=== PATIENT | female | born 1985 | race Caucasian/White ===

== ENCOUNTER → 2019-11-22 08:16 | Outpatient (BNVA) | payer MEDICAID, SELFPAY | PROVIDERS: Family Provider Nurse Practitioner; PCP Nurse Practitioner; Visit Provider Nurse Practitioner Family | DX: Z11.59 Encounter for screening for other viral diseases (principal) | CPT/HCPCS: 87635 ==

== ENCOUNTER → 2020-03-20 12:25 | Outpatient (BNVA) | payer BC, MEDICAID, SELFPAY | PROVIDERS: Family Provider Nurse Practitioner; PCP Nurse Practitioner; Visit Provider Nurse Practitioner | DX: S69.91XA Unspecified injury of right wrist, hand and finger(s), initial encounter (principal); X58.XXXA Exposure to other specified factors, initial encounter; M79.641 Pain in right hand | CPT/HCPCS: 73130 ==

== ENCOUNTER 2021-04-26 13:22 | Emergency (ER) | payer BC, MEDICAID, SELFPAY ==
[2021-04-26 13:48] VITALS: BP 135/81; PULSE 87; RESP 16; TEMP 36.4; O2SAT 98; BMI 42.3
--- NOTE | 2021-04-26 14:39 | ED_ITS ---
Documented by User: AMADOR Cool 04/26/21 16:10 HPI - Abdominal Pain General: Chief Complaint: Abdominal Pain Stated Complaint: Severe ABD Pain Time Seen by Provider: 04/26/21 14:39 Source: patient Mode of arrival: ambulatory Limitations: no limitations History of Present Illness: Patient is a 36-year-old female who presents to ED today with a complaint of abdominal pain. Patient tells me she began having pain in the right side of her back approximately 2 to 3 days ago. She states she chronically suffers from back pain so was not sure if her discomfort was secondary to that. She states she also has a family history of kidney stones and thought maybe it could be secondary to nephrolithiasis. Patient states that she never had any urinary symptoms but did start taking Azo thinking it could be either the kidney stone or a possible kidney infection. Patient states now her pain is diffuse into her abdomen. She states her abdomen feels bloated. She is not having any changes to bowel movements. She reports nausea without episodes of emesis. She has not had any fevers. MD elicited complaint: abdominal pain Pertinent past history: none Onset (ago): day(s) Pain Consistency: constant Location: Diffuse Quality: other (bloating) Radiation: none Migration to: no migration Exacerbating factors: nothing Relieving factors: nothing Associated Symptoms: Reports nausea; Denies change in bowel habits, change in stool character, chills, dysuria, fever(s), hematochezia, hematemesis, melena and vomiting Related Data: Date of Last Menstrual Period: 03/11/19 Review of Systems Const: Denies: fever(s), chills, body aches, fatigue or malaise Card: Denies: chest pain Resp: Denies: dyspnea GI: Reports: abdominal pain and nausea; Denies: vomiting, hematemesis, change in bowel habits, pain on defecation, change in stool character, hematochezia or melena : Denies: difficulty voiding, dysuria, urinary frequency, urinary urgency, vaginal odor, vaginal bleeding, vaginal discharge or pelvic pain Musc: Reports: back pain; Denies: neck pain, extremity pain or joint pain Skin/Breast: Denies: rash Neuro: Denies: headache(s), numbness in extremities, weakness in extremities, sensory changes or dizziness [facility] ED PFSH: Medical History (Updated 04/26/21 @ 20:35 by AMADOR Muller) Anxiety, generalized Depression Surgical History History of section Family History Family/Other Cancer Breast aunts Depression Grandmother Diabetes Hypertension Grandfather Diabetes Hypertension Stroke Social History Smoking and tobacco status: current some day smoker Second hand smoke exposure: No Smoking risk assessment/counseling performed?: No Alcohol intake: never Desire information about alcohol rehabilitation?: No Counseling given: No Desire information about substance/drug rehabilitation?: No Counseling given: No Adopted: No Caregiver/support person: No Lives independently: Yes Housing: House Marital status: Single Number of children: 2 service: No Current occupational status: employed Current occupation: [employer] History of recent travel: No Current gender identity: Female Female Reproductive History: Date of last menstrual period: 03/11/19 Physical Exam Const: COMMON NORMALS: no acute distress, patient oriented x3, no limitations and alert GENERAL APPEARANCE: cooperative NUTRITIONAL APPEARANCE: obese ORIENTATION/CONSCIOUSNESS: Yes awake, Yes oriented to person, Yes oriented to place and Yes oriented to time HENMT: COMMON NORMALS: normocephalic and atraumatic HEAD & SCALP: normocephalic and atraumatic Resp: COMMON NORMALS: normal respiratory effort and clear to auscultation bilaterally AUSCULTATION: clear to auscultation bilaterally Cardio: COMMON NORMALS: regular rate and regular rhythm RATE: regular rate RHYTHM: regular rhythm GI: COMMON NORMALS: Normal to inspection, nondistended, normoactive bowel sounds present, Soft to palpation, non-tender and no masses INSPECTION: Yes normal to inspection AUSCULTATION: Yes normoactive bowel sounds PALPATION: Yes Soft to palpation OTHER: diffuse tenderness-no obvious guarding or rigidity; exam limited secondary to body habitus : COMMON NORMALS: Yes no CVA tenderness BLADDER/KIDNEY EXAM: Yes no CVA tenderness Back/Pelvis: COMMON NORMALS: no CVA tenderness, thoracic and lumbar spine normal to inspection, no thoracic nor lumbar tenderness and thoraco-lumbar ROM normal Extremity: COMMON NORMALS: normal to inspection GENERAL: Yes normal exam except as noted Neuro: COMMON NORMALS: patient oriented x3, moves all extremities, no focal motor deficits and no sensory deficits noted SENSORIUM/ORIENTATION: Yes alert, Yes oriented to person, Yes oriented to place and Yes oriented to time Skin: COMMON NORMALS: no rashes or lesions noted GENERAL SKIN EXAM: no rashes or lesions noted Course Vital Signs: Vital signs: Vital Signs Temperature 97.6 F 04/26/21 13:48 Pulse Rate 87 04/26/21 13:48 Respiratory Rate 18 04/26/21 20:39 Blood Pressure 135/81 04/26/21 13:48 Pulse Oximetry 98 04/26/21 13:48 MDM - Abdominal Pain Lab Data : 04/26/21 15:30 04/26/21 15:30 Labs/Radiology: Radiology Impressions Abdomen/Pelvis CT 04/26/21 14:39 IMPRESSION: 1. 2.8 cm probable hemorrhagic cyst in the left ovary. For an asymptomatic patient, no further imaging is recommended. (Reference: Bob). If this could relate to the patient's symptoms, this can be further evaluated with pelvic ultrasound. 2. Otherwise no acute abnormality identified. 3. Cholelithiasis. References: Bob et al. Management of Incidental Adnexal Findings on CT and MRI: A White Paper of the ACR Incidental Findings Committee, J Am Terrance Radiol. 2020 Mar;17(2):248-254. COMMENTS: Consistent with the [place] [employer]'s Incidental Findings Committee white paper (J Am Terrance Radiol 2018): Any incidental renal lesion less than 1 cm or classified as too small to characterize, or any incidental cystic renal lesion characterized as simple-appearing, is likely benign. No follow-up imaging is recommended for these lesions per consensus recommendations based on imaging criteria. Pelvic/Transvag US 04/26/21 17:58 IMPRESSION: 1. 2.6 cm inhomogenous hyperechoic lesion in the left ovary appears avascular and is most likely a hemorrhagic cyst. Recommend 6-12 week follow-up to ensure resolution. If the cyst is unchanged, then hemorrhagic cyst is unlikely, and continued follow-up with either US or MR should then be considered. If these studies do not confirm an endometrioma or dermoid, then surgical evaluation should be considered. Laboratory Results WBC 7.9 10^3/uL (4.0-10.0) 04/26/21 15:30 RBC 5.30 10^6/uL (4.1-5.3) 04/26/21 15:30 Hgb 14.5 g/dL (11.5-15.3) 04/26/21 15: Hct 45.1 % (37.0-47.0) 04/26/21 15: MCV 85.1 fl (81-99) 04/26/21 15: MCH 27.4 pg (28.0-34.0) L 04/26/21 15: MCHC 32.2 g/dL (30.0-36.0) 04/26/21 15: RDW 13.6 % (12.1-15.1) 04/26/21: Plt Count 203 10^3/cmm (130-400) 04/26/21 15: MPV 11.7 fL (7.4-10.4) H 04/26/21 15: Neut % (Auto) 66.7 % 04/26/21: Lymph % (Auto) 21.5 % 04/26/21 15: [facility] % (Auto) 10.0 % 04/26/21 15: Eos % (Auto) 1.0 % 04/26/21 15: Baso % (Auto) 0.5 % 04/26/21: Neut # (Auto) 5.29 10^3/uL (1.8-7.7) 04/26/21 15: Lymph # (Auto) 1.7 10^3/uL (0.8-4.8) 04/26/21: [facility] # (Auto) 0.8 10^3/uL (0.2-0.9) 04/26/21 15: Eos # (Auto) 0.1 10^3/uL (0.0-0.8) 04/26/21: Baso # (Auto) 0.0 10^3/uL (0.0-0.1) 04/26/21 15: Nucleated RBC % (auto) 0 % 04/26/21: Nucleated RBCs # 0.0 /100WBC 04/26/21 15: Sodium 137 mmol/L (136-145) 04/26/21 15: Potassium 4.3 mmol/L (3.5-5.1) 04/26/21 15:30 Chloride 102 mmol/L (98-107) 04/26/21 15:30 Carbon Dioxide 22 mmol/L (22-29) 04/26/21 15:30 Anion Gap 17.3 (5-19) 04/26/21 15:30 BUN 8 mg/dL (6-20) 04/26/21 15:30 Creatinine 0.6 mg/dL (0.5-0.9) 04/26/21 15:30 GFR Calculation 113.1 mL/min (90-130) 04/26/21 15:30 Glucose 83 mg/dL (65-115) 04/26/21 15:30 Calculated Osmolality 281 mOsm/kg (285-295) L 04/26/21 15:30 Calcium 9.5 mg/dL (8.5-10.5) 04/26/21 15:30 Total Bilirubin 0.3 mg/dL (0.15-1.2) 04/26/21 15:30 AST 28 U/L (0-32) 04/26/21 15:30 ALT 30 U/L (0-33) 04/26/21 15:30 Alkaline Phosphatase 64 IU/L (35-105) 04/26/21 15:30 Total Protein 7.8 g/dL (6.6-8.7) 04/26/21 15:30 Albumin 4.7 g/dL (3.5-5.2) 04/26/21 15:30 Globulin 3.1 g/dL (1.3-4.6) 04/26/21 15:30 Lipase 44 U/L (13-60) 04/26/21 15:30 HCG, Qual Negative (Negative) 04/26/21 15:30 Urine Color Yellow (Yellow) 04/26/21 15:30 Urine Appearance Clear (CLEAR) 04/26/21 15:30 Urine pH 6.5 (5-7) 04/26/21 15:30 Ur Specific [place] 1.005 (1.005-1.030) 04/26/21 15:30 Urine Protein Neg (Negative) 04/26/21 15:30 Urine Glucose (UA) Norm (Normal) 04/26/21 15:30 Urine Ketones Negative (Negative) 04/26/21 15:30 Urine Blood Neg (Negative) 04/26/21 15:30 Urine Nitrate Negative (Negative) 04/26/21 15:30 Urine Bilirubin Neg (Negative) 04/26/21 15:30 Urine Urobilinogen Norm mg/dL (Negative) 04/26/21 15:30 Ur Leukocyte Esterase Negative (Negative) 04/26/21 15:30 Discharge Plan Discharge Patient Disposition: Home Clinical Impression: Hemorrhagic cyst of left ovary Condition: Stable Prescriptions: No Action No Known Home Medications 0RF Discharge Orders: Discharge ED (Routine); Ordered 04/26/21 Ordered By: Stephan Cooley Referrals: Diego Mcrae FNP-C [Primary Care Provider] - Discharge Diet: Regular Discharge Activity: Increase activity as tolerated Patient Instructions: Ovarian Cyst (ED) Activity Restrictions/Additional Instructions: Follow-up with medical provider as directed in the next 7 to 10 days reevaluation. It is recommended that she get a follow-up ultrasound within the next 6 to 12 weeks to ensure resolution of cyst. Take [id number] ibuprofe n or Tylenol for any pain. Return to the ER or your medical provider if condition worsens. Please read and understand discharge instructions. Thank you for choosing [facility] for your healthcare needs today. Please realize this is an emergency room and that we are providing you with a medical screening exam and this may not be complete and all inclusive of all the testing and or work up that you may need to determine your ailment or severity of your illness. It is very important that you follow up as instructed or that you return to the Emergency Department should you have concerns or if your condition changes or worsens in any way. Sign Out Sign Out Data: Patient Sign Out occurred on 04/26/21 at 17:07. Patient's care was discussed, and care was transferred from to AMADOR Muller. Coding Level of Care Code ED Die Equipment Operator for Chg Fwd Exam Comprehensive Documented by User: AMADOR Muller 04/26/21 22:39 HPI - Abdominal Pain General: Chief Complaint: Abdominal Pain Stated Complaint: Severe ABD Pain Time Seen by Provider: 04/26/21 14:39 [facility] ED PFS: Medical History (Updated 04/26/21 @ 20:35 by AMADOR Muller) Anxiety, generalized Depression Surgical History History of section Family History Family/Other Cancer Breast aunts Depression Grandmother Diabetes Hypertension Grandfather Diabetes Hypertension Stroke Social History Smoking and tobacco status: current some day smoker Second hand smoke exposure: No Smoking risk assessment/counseling performed?: No Alcohol intake: never Desire information about alcohol rehabilitation?: No Counseling given: No Desire information about substance/drug rehabilitation?: No Counseling given: No Adopted: No Caregiver/support person: No Lives independently: Yes Housing: House Marital status: Single Number of children: 2 service: No Current occupational status: employed Current occupation: [employer] General History of recent travel: No Current gender identity: Female Course Vital Signs: Vital signs: Vital Signs Temperature 97.6 F 04/26/21 13:48 Pulse Rate 87 04/26/21 13:48 Respiratory Rate 18 04/26/21 20:39 Blood Pressure 135/81 04/26/21 13:48 Pulse Oximetry 98 04/26/21 13:48 MDM - Abdominal Pain Medical Decision Making Patient is a 36-year-old female comes to the ED with abdominal pain. Is been going on for the past 2 to 3 days. Vitals are stable. Patient appears in no acute distress. She has some diffuse tenderness throughout her abdomen, with no guarding or rigidity. Labs were unremarkable. CT of abdomen pelvis showed 2.8 cm left ovary hemorrhagic cyst. They recommended doing an ultrasound of the pelvis if patient is having symptoms. Patient's pain had been increasing while here in the ED so an ultrasound of pelvic was done. Ultrasound confirmed patient has a 2.6 left ovary hemorrhagic cyst and they recommend 6 to 12-week follow-up ultrasound to be done to make sure it resolves. Patient diagnosed with hemorrhagic cyst of left ovary and was discharged home. She was told to follow-up with her primary care doctor within the next week and I told her about doing a follow-up ultrasound in 6- 12 weeks to ensure resolution. Return to ED precautions given. Patient understood and agree with plan. Lab Data I reviewed the patient's lab results. : 04/26/21 15:30 04/26/21 15:30 Labs/Radiology: Radiology Impressions Abdomen/Pelvis CT 04/26/21 14:39 IMPRESSION: 1. 2.8 cm probable hemorrhagic cyst in the left ovary. For an asymptomatic patient, no further imaging is recommended. (Reference: Bob). If this could relate to the patient's symptoms, this can be further evaluated with pelvic ultrasound. 2. Otherwise no acute abnormality identified. 3. Cholelithiasis. References: Bob et al. Management of Incidental Adnexal Findings on CT and MRI: A White Paper of the ACR Incidental Findings Committee, J Am Terrance Radiol. 2019;17(2):248-254. COMMENTS: Consistent with the [place] [employer]'s Incidental Findings Committee white paper (J Am Terrance Radiol 2018): Any incidental renal lesion less than 1 cm or classified as too small to characterize, or any incidental cystic renal lesion characterized as simple-appearing, is likely benign. No follow-up imaging is recommended for these lesions per consensus recommendations based on imaging criteria. Pelvic/Transvag US 04/26/21 17:58 IMPRESSION: 1. 2.6 cm inhomogenous hyperechoic lesion in the left ovary appears avascular and is most likely a hemorrhagic cyst. Recommend 6-12 week follow-up to ensure resolution. If the cyst is unchanged, then hemorrhagic cyst is unlikely, and continued follow-up with either US or MR should then be considered. If these studies do not confirm an endometrioma or dermoid, then surgical evaluation should be considered. Laboratory Results WBC 7.9 10^3/uL (4.0-10.0) 04/26/21 15:30 RBC 5.30 10^6/uL (4.1-5.3) 04/26/21 15:30 Hgb 14.5 g/dL (11.5-15.3) 04/26/21 15:30 Hct 45.1 % (37.0-47.0) 04/26/21 15:30 MCV 85.1 fl (81-99) 04/26/21 15:30 MCH 27.4 pg (28.0-34.0) L 04/26/21 15:30 MCHC 32.2 g/dL (30.0-36.0) 04/26/21 15:30 RDW 13.6 % (12.1-15.1) 04/26/21 15:30 Plt Count 203 10^3/cmm (130-400) 04/26/21 15:30 MPV 11.7 fL (7.4-10.4) H 04/26/21 15:30 Neut % (Auto) 66.7 % 04/26/21 15:30 Lymph % (Auto) 21.5 % 04/26/21 15:30 [facility] % (Auto) 10.0 % 04/26/21 15:30 Eos % (Auto) 1.0 % 04/26/21 15: Baso % (Auto) 0.5 % 04/26/21 15:30 Neut # (Auto) 5.29 10^3/uL (1.8-7.7) 04/26/21 15:30 Lymph # (Auto) 1.7 10^3/uL (0.8-4.8) 04/26/21 15:30 [facility] # (Auto) 0.8 10^3/uL (0.2-0.9) 04/26/21 15:30 Eos # (Auto) 0.1 10^3/uL (0.0-0.8) 04/26/21 15:30 Baso # (Auto) 0.0 10^3/uL (0.0-0.1) 04/26/21 15: Nucleated RBC % (auto) 0 % 04/26/21 15:30 Nucleated RBCs # 0.0 /100WBC 04/26/21 15:30 Sodium 137 mmol/L (136-145) 04/26/21 15:30 Potassium 4.3 mmol/L (3.5-5.1) 04/26/21 15:30 Chloride 102 mmol/L (98-107) 04/26/21 15:30 Carbon Dioxide 22 mmol/L (22-29) 04/26/21 15:30 Anion Gap 17.3 (5-19) 04/26/21 15:30 BUN 8 mg/dL (6-20) 04/26/21 15:30 Creatinine 0.6 mg/dL (0.5-0.9) 04/26/21 15:30 GFR Calculation 113.1 mL/min (90-130) 04/26/21 15:30 Glucose 83 mg/dL (65-115) 04/26/21 15:30 Calculated Osmolality 281 mOsm/kg (285-295) L 04/26/21 15:30 Calcium 9.5 mg/dL (8.5-10.5) 04/26/21 15:30 Total Bilirubin 0.3 mg/dL (0.15-1.2) 04/26/21 15:30 AST 28 U/L (0-32) 04/26/21 15:30 ALT 30 U/L (0-33) 04/26/21 15:30 Alkaline Phosphatase 64 IU/L (35-105) 04/26/21 15:30 Total Protein 7.8 g/dL (6.6-8.7) 04/26/21 15:30 Albumin 4.7 g/dL (3.5-5.2) 04/26/21 15:30 Globulin 3.1 g/dL (1.3-4.6) 04/26/21 15:30 Lipase 44 U/L (13-60) 04/26/21 15:30 HCG, Qual Negative (Negative) 04/26/21 15:30 Urine Color Yellow (Yellow) 04/26/21 15:30 Urine Appearance Clear (CLEAR) 04/26/21 15:30 Urine pH 6.5 (5-7) 04/26/21 15:30 Ur Specific [place] 1.005 (1.005-1.030) 04/26/21 15:30 Urine Protein Neg (Negative) 04/26/21 15:30 Urine Glucose (UA) Norm (Normal) 04/26/21 15:30 Urine Ketones Negative (Negative) 04/26/21 15:30 Urine Blood Neg (Negative) 04/26/21 15:30 Urine Nitrate Negative (Negative) 04/26/21 15:30 Urine Bilirubin Neg (Negative) 04/26/21 15:30 Urine Urobilinogen Norm mg/dL (Negative) 04/26/21 15:30 Ur Leukocyte Esterase Negative (Negative) 04/26/21 15:30 Discharge Plan Discharge Patient Disposition: Home Clinical Impression: Hemorrhagic cyst of left ovary Condition: Stable Prescriptions: No Action No Known Home Medications 0RF Discharge Orders: Discharge ED (Routine); Ordered 04/26/21 Ordered By: Stephan Cooley Referrals: Diego Mcrae, NUTRITION PROGRAM INSTRUCTOR-C [Primary Care Provider] - Discharge Diet: Regular Discharge Activity: Increase activity as tolerated Patient Instructions: Ovarian Cyst (ED) Activity Restrictions/Additional Instructions: Follow-up with medical provider as directed in the next 7 to 10 days reevaluation. It is recommended that she get a follow-up ultrasound within the next 6 to 12 weeks to ensure resolution of cyst. Take [id number] ibuprofen or Tylenol for any pain. Return to the ER or your medical provider if condition worsens. Please read and understand discharge instructions. Thank you for choosing [facility] for your healthcare needs today. Please realize this is an emergency room and that we are providing you with a medical screening exam and this may not be complete and all inclusive of all the testing and or work up that you may need to determine your ailment or severity of your illness. It is very important that you follow up as instructed or that you return to the Emergency Department should you have concerns or if your condition changes or worsens in any way. Sign Out Sign Out Data: Patient Sign Out occurred on 04/26/21 at 17:07. Patient's care was discussed, and care was transferred from to AMADOR Muller. Coding Level of Care Code ED Die Equipment Operator for Jazmin Fwd Exam Comprehensive
--- NOTE | 2021-04-26 14:39 | CTR_ITS ---
PROCEDURE INFORMATION: Exam: CT Abdomen And Pelvis With Contrast Exam date and time: 04/26/2021 4:32 PM Age: 36 years old Clinical indication: Prior surgery; Surgery date: 6+ months; Surgery type: x2; Patient HX: Lower abdominal pain x3 days with bloating; Additional info: Abdominal/back pain TECHNIQUE: Imaging protocol: Computed tomography of the abdomen and pelvis with contrast. Radiation optimization: All CT scans at this facility use at least one of these dose optimization techniques: automated exposure control; mA and/or kV adjustment per patient size (includes targeted exams where dose is matched to clinical indication); or iterative reconstruction. Contrast material: OMNI 300; Contrast volume: 95 ml; Contrast route: INTRAVENOUS (IV); COMPARISON: [facility] OB > 14 weeks 11/10/2016 11:22 AM RADIATION DOSE METRICS: Total DLP (mGy-cm): 39628.51 FINDINGS: Liver: Normal. No mass. Gallbladder and bile ducts: Multiple calcified stones in the gallbladder. No visible wall thickening. The bile ducts are normal. Pancreas: Normal. No ductal dilation. Spleen: Normal. No splenomegaly. Adrenal glands: Normal. No mass. Kidneys and ureters: Hypodensity in the left kidney is too small to characterize but is most likely a cyst. No follow-up imaging is recommended. The right kidney is unremarkable. No calculus or hydronephrosis. Stomach and bowel: Unremarkable. No obstruction. No mucosal thickening. Appendix: The appendix is visualized and is normal. Intraperitoneal space: Small amount of ascites in the pelvis. No free air. Vasculature: Unremarkable. No abdominal aortic aneurysm. Lymph nodes: Subcentimeter mesenteric lymph nodes are prominent in number and most likely reactive. Urinary bladder: Unremarkable as visualized. Reproductive: 2.8 cm inhomogenous lesion in the left ovary, most likely a hemorrhagic cyst. The uterus and right ovary are unremarkable. Bones/joints: Unremarkable. No acute fracture. Soft tissues: Unremarkable. CT/CT abdomen pelvis w con* [id number] IMPRESSION: 1. 2.8 cm probable hemorrhagic cyst in the left ovary. For an asymptomatic patient, no further imaging is recommended. (Reference: Bob). If this could relate to the patient's symptoms, this can be further evaluated with pelvic ultrasound. 2. Otherwise no acute abnormality identified. 3. Cholelithiasis. References: Bob et al. Management of Incidental Adnexal Findings on CT and MRI: A White Paper of the ACR Incidental Findings Committee, J Am Terrance Radiol. 2019;17(2):248-254. COMMENTS: Consistent with the [place] [employer]'s Incidental Findings Committee white paper (J Am Terrance Radiol 2018): Any incidental renal lesion less than 1 cm or classified as too small to characterize, or any incidental cystic renal lesion characterized as simple-appearing, is likely benign. No follow-up imaging is recommended for these lesions per consensus recommendations based on imaging criteria.
[2021-04-26 15:39] LABS: Basophils % 0.5 %; Eosinophils # 0.1 10^3/uL (0.0-0.8); Hematocrit 45.1 % (37.0-47.0); Hemoglobin 14.5 g/dL (11.5-15.3); Lymphocytes # 1.7 10^3/uL (0.8-4.8); Lymphocytes % 21.5 %; Mean Corpuscular HGB Conc 32.2 g/dL (30.0-36.0); Mean Corpuscular Hemoglobin 27.4 pg (28.0-34.0); Mean Corpuscular Volume 85.1 fl (81-99); Mean Platelet Volume 11.7 fL (7.4-10.4); Monocytes # 0.8 10^3/uL (0.2-0.9); Neutrophils # 5.29 10^3/uL (1.8-7.7); Neutrophils % 66.7 %; Nucleated Red Blood Cells % 0 %; Platelet Count 203 10^3/cmm (130-400); Red Cell Distribution Width 13.6 % (12.1-15.1); White Blood Count 7.9 10^3/uL (4.0-10.0)
[2021-04-26 15:47] LABS: Add Urine Microscopic? NO; Charge for UA Resulting for Rev
[2021-04-26 16:06] LABS: HCG, Serum Qual Negative (Negative)
[2021-04-26 16:10] LABS: Bilirubin Urine Neg (Negative); Blood Urine Neg (Negative); Glucose Urine UA Norm (Normal); Ketones Urine Negative (Negative); Nitrate Urine Negative (Negative); Protein Urine Neg (Negative); Specific Gravity, Urine 1.005 (1.005-1.030); Urine Appearance Clear (CLEAR); Urine Color Yellow (Yellow); Urobilinogen Urine Norm (Negative); pH Urine 6.5 (5-7)
[2021-04-26 16:11] LABS: Alanine Aminotransferase 30 U/L (0-33); Albumin Level 4.7 g/dL (3.5-5.2); Alkaline Phosphatase 64 IU/L (35-105); Anion Gap 17.3 (5-19); Aspartate Amino Transferase 28 U/L (0-32); Blood Urea Nitrogen 8 mg/dL (6-20); Calcium 9.5 mg/dL (8.5-10.5); Carbon Dioxide 22 mmol/L (22-29); Chloride 102 mmol/L (98-107); Globulin 3.1 g/dL (1.3-4.6); Glomerular Filtration Rate 113.1 mL/min (90-130); Glucose 83 mg/dL (65-115); Leukocyte Esterase Urine Negative (Negative); Lipase 44 U/L (13-60); Osmolality Calculated 281 mOsm/kg (285-295); Potassium 4.3 mmol/L (3.5-5.1); Sodium 137 mmol/L (136-145); Total Bilirubin 0.3 mg/dL (0.15-1.2); Total Protein 7.8 g/dL (6.6-8.7)
[2021-04-26] MEDS: iohexol 300 mg/mL 100 mL Btl IV (16:31)
--- NOTE | 2021-04-26 17:58 | USR_ITS ---
PROCEDURE INFORMATION: Exam: US Pelvis, Transvaginal Exam date and time: 04/26/2021 6:52 PM Age: 36 years old Clinical indication: Pelvic pain; Prior surgery; Surgery date: 6+ months; Surgery type: ; Additional info: Bilateral lower pelvic pain TECHNIQUE: Imaging protocol: Real-time transvaginal pelvic ultrasound with image documentation. Transvaginal imaging was used for better evaluation of the endometrium, adnexa, and/or cervix. COMPARISON: 1. CT abdomen pelvis w con* [id number] 04/26/2021 4:32 PM 2. The FINDINGS: Uterus: The uterus measures 7.3 x 3.7 x 4.4 cm. The endometrium measures 13 mm. Right ovary/adnexa: The right ovary is not visualized. Left ovary/adnexa: The left ovary is enlarged measuring 4.6 x 2.3 x 2.6 cm. Within the posteroinferior ovary is a 2.6 x 2.1 x 2.5 cm inhomogenous hyperechoic avascular probable hemorrhagic cyst. Intraperitoneal space: Mild amount of free fluid in the cul-de-sac. US/US pelvic with transvaginal IMPRESSION: 1. 2.6 cm inhomogenous hyperechoic lesion in the left ovary appears avascular and is most likely a hemorrhagic cyst. Recommend 6-12 week follow-up to ensure resolution. If the cyst is unchanged, then hemorrhagic cyst is unlikely, and continued follow-up with either US or MR should then be considered. If these studies do not confirm an endometrioma or dermoid, then surgical evaluation should be considered.
[2021-04-26 18:18] VITALS: RESP 18
[2021-04-26] MEDS: ondansetron 2 mg/ML SDV 2 mL 4 MG IVP (18:18)
[2021-04-26] MEDS: morphine 4 mg/mL SDV 1 mL IVP ×2 (18:18→20:39)
[2021-04-26 20:39] VITALS: RESP 18
[2021-04-26] MEDS: HYDROcodone-acetaminophen 5-325 mg Tablet 1 TAB PO (20:44)
== END 2021-04-26 20:58 | disposition home or self-care (01) ==
PROVIDERS: Physician Assistant; Emergency Provider Physician Assistant; PCP Nurse Practitioner
DX: N83.202 Unspecified ovarian cyst, left side (principal); F17.210 Nicotine dependence, cigarettes, uncomplicated
CPT/HCPCS: 74177; 76830; 76856; 80053; 81003; 83690; 84703; 85025; 96374; 96375; 96376; 99284; J2270; J2405; Q9967

== ENCOUNTER 2021-09-03 16:16 | Observation (INO) | payer BC, MEDICAID, SELFPAY ==
[2021-09-03] VITALS (14 sets, daily range): BP systolic 117–138; BP diastolic 78–102; PULSE 66–86; RESP 15–22; TEMP 36.5–36.8; O2SAT 91–100; BMI 39.1
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
[2021-09-03] MEDS: HYDROmorphone 1 mg/mL INJ 1 mL IVP ×3 (16:52→21:12)
[2021-09-03 17:07] LABS: Basophils % 0.4 %; Eosinophils # 0.1 10^3/uL (0.0-0.8); Eosinophils % 0.8 %; Hematocrit 41.1 % (37.0-47.0); Hemoglobin 12.7 g/dL (11.5-15.3); Lymphocytes # 1.7 10^3/uL (0.8-4.8); Lymphocytes % 17.8 %; Mean Corpuscular HGB Conc 30.9 g/dL (30.0-36.0); Mean Corpuscular Hemoglobin 26.7 pg (28.0-34.0); Mean Corpuscular Volume 86.3 fl (81-99); Mean Platelet Volume 11.6 fL (7.4-10.4); Monocytes # 0.6 10^3/uL (0.2-0.9); Monocytes % 6.6 %; Neutrophils # 6.83 10^3/uL (1.8-7.7); Neutrophils % 73.4 %; Nucleated Red Blood Cells % 0 %; Platelet Count 208 10^3/cmm (130-400); Red Blood Count 4.76 10^6/uL (4.1-5.3); Red Cell Distribution Width 15.2 % (12.1-15.1); White Blood Count 9.3 10^3/uL (4.0-10.0)
[2021-09-03 17:46] LABS: HCG, Serum Qual Negative (Negative)
[2021-09-03 17:48] LABS: Blood Urea Nitrogen 14 mg/dL (6-20); Calcium 8.2 mg/dL (8.5-10.5); Carbon Dioxide 21 mmol/L (22-29); Chloride 105 mmol/L (98-107); Glomerular Filtration Rate 113.1 mL/min (90-130); Glucose 124 mg/dL (65-115); Lipase 38 U/L (13-60); Osmolality Calculated 286 mOsm/kg (285-295); Sodium 137 mmol/L (136-145)
[2021-09-03] MEDS: HYDROmorphone 1 mg/mL INJ 1 mL 0.5 MG IVP ×2 (17:58→23:37)
[2021-09-03] MEDS: sodium chloride 0.9% (100 ml) 100 ML 300 ML (18:00)
[2021-09-03 18:18] LABS: Anion Gap 15.1 (5-19); Potassium 4.1 mmol/L (3.5-5.1)
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
--- NOTE | 2021-09-03 23:40 | PC.PHAR ---
2100: Omnicell noted to have discrepancy due to 1mg Dilaudid pulled and given but reflects that 0.5 pulled and 1mg given. All medications pulled per pharmacy policy and wasted immediately prior to being given to patient. Discrepancy reviewed by charge nurse and verified all medications had been wasted per protocol as well as pharmacy present to review omnicell and pulls. Pharmacy verified that medications were pulled and wasted appropriately. Pharmacy staff Harro to witness that protocol was followed.
--- NOTE | 2021-09-04 01:27 | PC.NURSE ---
ACTIVITY No activity order for pt. Was getting off [facility] when I went into room at time of admission and went to the bathroom. Discussed activity with Dr Collier when she came up to see pt. She does not feel comfortable ordering activity until pt is cleared by Dr Jaimes. Attempted call to Dr Jaimes without answer. Discussed with Dr Collier and going to keep pt on bedrest until is seen.. Pt aware of this.
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
[2021-09-04 03:28] VITALS: RESP 18
[2021-09-04] MEDS: HYDROmorphone 1 mg/mL INJ 1 mL 0.5 MG IVP ×2 (03:28→09:13)
[2021-09-04 04:00] VITALS: BP 114/66; PULSE 64; TEMP 37; O2SAT 96
[2021-09-04 05:44] VITALS: RESP 18
[2021-09-04] MEDS: oxyCODONE-APAP 5-325 mg Tablet 1 TAB PO ×2 (05:44→11:23)
[2021-09-04] MEDS: ketorolac 30 mg/mL INJ 15 MG IVP (05:44)
[2021-09-04 07:55] VITALS: BP 101/61; PULSE 72; RESP 17; TEMP 37.1; O2SAT 97
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
== END 2021-09-04 11:59 | disposition home or self-care (01) ==
LOC: ER 19:20 → MEDSURG 20:07
PROVIDERS: Emergency Medicine; Admitting Provider Orthopaedic Surgery; Emergency Provider Emergency Medicine; PCP Nurse Practitioner; Visit Provider Orthopaedic Surgery
DX: S32.010A Wedge compression fracture of first lumbar vertebra, initial encounter for closed fracture (principal); V89.2XXA Person injured in unspecified motor-vehicle accident, traffic, initial encounter; F41.9 Anxiety disorder, unspecified; F17.200 Nicotine dependence, unspecified, uncomplicated
CPT/HCPCS: 70450; 71250; 72125; 72131; 74176; 80048; 83690; 84703; 85025; 96374; 96375; 96376; 97161; 99285; G0378; J1170; J1885; J3490

== ENCOUNTER → 2023-05-17 11:28 | Outpatient (BNVA) | payer BC, MEDICAID, SELFPAY | PROVIDERS: PCP Nurse Practitioner; Visit Provider Family Medicine | DX: N39.0 Urinary tract infection, site not specified (principal) | CPT/HCPCS: 81003; 87077; 87086; 87184 ==